=== PATIENT | female | born 1945 | race African-American/Black ===

== ENCOUNTER 2019-05-29 09:41 | Emergency (ER) | payer OTHER ==
[~2019-05-29] VITALS: Ht 180.3 cm; Wt 83.9 kg
[2019-05-29 09:45] VITALS: BP 160/57
--- NOTE | 2019-05-29 10:00 | NUR ---
ED Nurse Note: Pt walked into ED w/ c/o rash on general body for 2 days. Cause is unknown. Pt rash is not open, small bumps on general body. Pt denies pain or nausea or vomiting. Pt is alert and orientedx4, ambulatory.
[2019-05-29] MEDS ORDERED: BENADRYL25 M3 PO (10:03)
--- NOTE | 2019-05-29 10:03 | Emergency Room Report ---
History of Present Illness General Chief Complaint: Skin Rash/Abscess Source: Patient Present Illness HPI 74-year-old female history of hypertension presents with rash after taking amoxicillin that started 3 days prior to arrival she endorses itchiness, no shortness of breath no throat closing, severity is mild, constant patient presents for evaluation Allergies: Coded Allergies: No Known Allergies (Unverified , 05/29/19) Patient History Past Medical History: see triage record Reviewed Nursing Documentation: PMH: Agreed; PSxH: Agreed Nursing Documentation-PMH Hx Cardiac Problems: No - HLD Hx Hypertension: Yes Review of Systems All Other Systems: negative except mentioned in HPI Physical Exam Vital Signs Date Time Temp Pulse Resp B/P (MAP) Pulse Ox O2 Delivery O2 Flow Rate FiO2 05/29/19 09:45 97.9 71 18 160/57 (91) 100 Room Air Sp02 EP Interpretation: reviewed, normal General Appearance: well appearing, no apparent distress, alert Head: normocephalic, atraumatic Eyes: bilateral eye PERRL, bilateral eye EOMI ENT: uvula midline, moist mucus membranes Neck: supple, thyroid normal, supple/symm/no masses Respiratory: lungs clear, no respiratory distress, no retraction, no accessory muscle use Cardiovascular #1: normal peripheral pulses, regular rate, rhythm, no edema, no gallop, no murmur Gastrointestinal: non tender, soft, no guarding, no rebound Musculoskeletal: normal inspection Neurologic: alert, oriented x3 Psychiatric: mood/affect normal Skin: rash - Urticarial rash diffuse, warm/dry Medical Decision Making Diagnostic Impression: Primary Impression: Urticaria Additional Impression: Allergy to amoxicillin ER Course 74-year-old female presents with most likely an allergic to reaction to amoxicillin, patient already discontinued, will provide Benadryl, symptomatic care, if she worsens return to the ED disposition home with return precautions follow-up with PCP Last Vital Signs Date Time Temp Pulse Resp B/P (MAP) Pulse Ox O2 Delivery O2 Flow Rate FiO2 05/29/19 09:45 97.9 71 18 160/57 (91) 100 Room Air Disposition: HOME, SELF-CARE Condition: Stable Scripts Diphenhydramine HCl (Benadryl) 25 Mg Capsule 25 MG PO TID PRN for Itching/Pruritis, #30 CAP Prov: Gilberto Gordillo MD 05/29/19 Referrals: [facility] Patient Instructions: Drug Allergy, Hives, [id number] Additional Instructions: The patient was provided with discharge instructions, notified to follow-up with a primary care doctor and or specialist in the next 24-48 hours, and to return to the ED if they have worsening of their symptoms. Please note that this report is being documented using [employer]AGON technology. This can lead to erroneous entry secondary to incorrect interpretation by the dictating instrument. Please do not take amoxicillin you have a mild allergy which is hives/rash Gilberto Gordillo MD May 29, 2019 10:03
[2019-05-29 10:15] VITALS: BP 155/55
--- NOTE | 2019-05-29 10:16 | NUR ---
ER DISCHARGE NOTE: Patient is cleared to be discharged per ERMD, pt is aox4, on room air, with stable vital signs. pt was given dc and prescription instructions, pt was able to verbalize understanding, pt id band removed. pt is able to ambulate with steady gait. pt took all belongings.
== END 2019-05-29 10:17 | disposition home or self-care (01) ==
LOC: EMR 10:00
DX: L50.0 Allergic urticaria (principal); T36.0X5A Adverse effect of penicillins, initial encounter; I10 Essential (primary) hypertension; E78.5 Hyperlipidemia, unspecified; Y92.9 Unspecified place or not applicable
CPT/HCPCS: 99282